=== PATIENT | female | born 1995 | race Caucasian/White ===

== ENCOUNTER → 2016-08-14 | Outpatient (CLI) | payer BC ==
[~2016-08-14] MED LIST: PRENTAB26 PO; SULF800T23 PO
[2016-08-14 10:10] LABS: BASO % 0.2 %; BASO ABS # 0.02 K/uL (0-0.2); COMPLETE YES; EOS % 0.4 %; HEMATOCRIT 36.5 % (37-47); IG% 0.3 %; LYMPH % 15.6 %; LYMPH ABS # 1.72 K/uL (1.2-3.4); MEAN CELL VOLUME 91.5 fL (80-100); MEAN CORPUSCULAR HEMOGLOBIN 31.8 pg (25-34); MEAN CORPUSCULAR HGB CONC 34.8 g/dl (32-36); MEAN PLATELET VOLUME 10.3 fL (7.4-10.4); MONO % 5.4 %; NEUT % 78.1 %; PLATELET COUNT 248 K/uL (130-400); RED BLOOD COUNT 3.99 M/uL (4.2-5.4); WHITE BLOOD COUNT 11.06 K/uL (4.8-10.8)
[2016-08-14 10:33] LABS: GTGD 50 Grams
[2016-08-15 13:28] LABS: AFP CONCENTRATION 35.8 NG/ML; AFP MULTIPLE OF MEDIAN 1.22; AFPTS GESTATIONAL AGE 15.7 WEEKS; AFPTS INSULIN DEP DIABETIC? NO; AFPTS MATERNAL WT 165 LBS; ALPHA-FETOPROTEIN RACE CAUCASIAN=W; EDD DETERMINED BY ULTRASOUND; ESTRIOL MULTIPLE OF MEDIAN 1.16; HISTORY OF NTD NO; INHIBIN A 367 PG/ML; INHIBIN A MOM 2.21; REPEAT SAMPLE? NO; hCG MULTIPLE OF MEDIAN 1.37
== END | disposition home or self-care (01) ==
LOC: C.LAB 08:14
PROVIDERS: ATTEND Obstetrics & Gynecology
DX: Z34.02 Encounter for supervision of normal first pregnancy, second trimester (principal)

== ENCOUNTER → 2016-11-20 | Outpatient (CLI) | payer BC ==
--- NOTE | 2016-11-20 16:46 | MAMMOGRAPHY REPORT ---
ULTRASOUND OF RIGHT BREAST: 11/20/2016 CLINICAL HISTORY: 21-year-old woman presents for follow-up of a benign-appearing solid or cystic mas s in the 10:00 right breast seen on previous ultrasound. Patient is currently 7 months . S he has a history of bilateral epidermal inclusion cysts versus boils throughout the breasts. COMPARISON: Comparison is made to exam dated: 05/21/2016 ultrasound - [facility]. FINDINGS: Targeted ultrasound was performed in the 10:00 axis of the right breast to reevaluate the lobulated hypoechoic possible solid mass seen on previous ultrasound. There is no evidence of mild lactational changes throughout the visualized right breast. In the 10:00 axis, 4 cm from the nippl e, there is a lobulated circumscribed parallel hypoechoic possible solid mass versus focal stromal f ibrosis, measuring 9.7 x 5.0 x 10.8 mm. Previous measurements were 13.5 x 8.1 x 7.5 mm. Given slig ht differences in measuring technique this is considered stable. However, longer stability is neede d and another short interval follow-up exam after delivery, approximately 4-6 months from now is rec ommended. IMPRESSION: ACR-BI-RADS CATEGORY 3: PROBABLY BENIGN - FOLLOW-UP RECOMMENDED The lobulated hypoechoic solid-appearing mass in the 10:00 right breast does not appear significantl y changed, appearing to the previous right breast ultrasound. Given technical differences between e xams, with new lactational changes evident in the right breast, the mass is somewhat less conspicuou s comparing to the prior ultrasound. Nevertheless, another targeted ultrasound in the right 10:00 b reast is recommended after delivery in 4-6 months to ensure longer stability. These results and recommendations were discussed with the patient at the time of the exam. Enedina Mckeon M.D. ay/:11/20/2016 15:15:19 Hydrometeorologist: Aruna SIDHU)(Kushal), [facility] letter sent: Follow Up Recommended 3 BI-RADS Code: ACR-BI-RADS Category 3: Probably Benign
== END | disposition home or self-care (01) ==
LOC: C.MAMM 13:29
PROVIDERS: ATTEND Internal Medicine
DX: N63 Unspecified lump in breast (principal); O26.893 Other specified pregnancy related conditions, third trimester

== ENCOUNTER 2017-02-05 01:58 | Inpatient (IN) | payer BC, OTHER ==
[~2017-02-05] VITALS: Ht 160 cm; Wt 88.5 kg
[~2017-02-05 01:58] MED LIST changes: -PRENTAB26 PO
[2017-02-05] MEDS ORDERED: NURSING VERBAL MED ORDER ONE ×2 (03:00)
[2017-02-05] MEDS ORDERED: BUTORPHANOL TARTRATE 1 MG/ML VIAL ONE (03:12)
[2017-02-05 03:15] LABS: HEMATOCRIT 36.9 % (37-47); MEAN CELL VOLUME 88.9 fL (80-100); MEAN CORPUSCULAR HEMOGLOBIN 29.9 pg (25-34); MEAN CORPUSCULAR HGB CONC 33.6 g/dl (32-36); MEAN PLATELET VOLUME 9.9 fL (7.4-10.4); PLATELET COUNT 282 K/uL (130-400); RED BLOOD COUNT 4.15 M/uL (4.2-5.4); WHITE BLOOD COUNT 13.21 K/uL (4.8-10.8)
[2017-02-05] MEDS ORDERED: BUTORPHANOL TARTRATE 1 MG/ML VIAL IV PRN (03:30)
[2017-02-05] MEDS ORDERED: LACTATED RINGER'S 1000ML 1,000 ML IV PRN (03:30)
[2017-02-05] MEDS: LACTATED RINGER'S 1000ML 1,000 ML IV SCH ×2 (03:32→09:42)
[2017-02-05] MEDS ORDERED: PRENTAB26 PO (03:35)
[2017-02-05 03:37] VITALS: Ht 160 cm; Wt 88.5 kg
[2017-02-05] MEDS ORDERED: EpHEDrine SULFATE INJ 50 MG/ML AMP ONE (05:48)
[2017-02-05] MEDS ORDERED: FENTANYL CITRATE INJ 50 MCG/1 ML 2 ML VIAL ONE (05:48)
[2017-02-05] MEDS ORDERED: FENTANYL 2MCG/ML ROPIV 1.25MG/ML 100ML BAG EPI ONE (05:48)
[2017-02-05] MEDS ORDERED: BUPIVACAINE 0.25% 30 ML VIAL ONE (05:48)
[2017-02-05] MEDS ORDERED: NALOXONE HCL INJ 1 MG in SODIUM CHLORIDE 0.9% 1000ML 1,000 ML IV PRN (06:59)
[2017-02-05] MEDS ORDERED: LACTATED RINGER'S 1000ML 500 ML IV PRN (06:59)
[2017-02-05] MEDS ORDERED: FENTANYL 2MCG/ML ROPIV 1.25MG/ML 100ML BAG EPI PRN (07:00)
[2017-02-05] MEDS ORDERED: NALBUPHINE HCL INJ 10 MG/ML AMP IV PRN (07:00)
[2017-02-05] MEDS ORDERED: DiphenhydrAMINE HCL 50 MG/ML VIAL IV PRN (07:00)
[2017-02-05] MEDS ORDERED: EpHEDrine SULFATE INJ 50 MG/ML AMP IV PRN (07:00)
[2017-02-05] MEDS ORDERED: NALOXONE HCL INJ 0.4 MG/1 ML VIAL/CARP IV PRN (07:00)
[2017-02-05] MEDS ORDERED: OXYTOCIN 30 UNITS/500ML NSS IV ONE (10:37)
[2017-02-05] MEDS ORDERED: ACETAMINOPHEN 325 MG TAB PO PRN (11:15)
[2017-02-05] MEDS ORDERED: BENZOCAINE 20% AER SPR 82.5 GM CAN EXT PRN (11:15)
[2017-02-05] MEDS ORDERED: OXYCODONE/ACETAMINOPHEN 5-325 TAB PO PRN (11:15)
[2017-02-05] MEDS ORDERED: SUPERCREAM 0.870 % 15GM JAR EXT PRN (11:15)
[2017-02-05] MEDS ORDERED: ACETAMINOPHEN/CODEINE 300/30MG TAB PO PRN ×2 (11:15)
[2017-02-05] MEDS ORDERED: HYDROCORTISONE ACETATE 25 MG SUPP PR PRN (11:15)
[2017-02-05] MEDS ORDERED: LANOLIN OINT EXT PRN ×2 (11:15)
[2017-02-05] MEDS ORDERED: OXYTOCIN 30 UNITS/500ML NSS IV PRN (11:15)
[2017-02-05] MEDS ORDERED: DIPHTHERIA/TETANUS/PERTUSSIS 0.5 ML SYR/VIAL IM. ONE (11:15)
--- NOTE | 2017-02-05 13:41 | Anesthesia Procedure Note ---
Anesthesia Epidural Removal Nt Date & Time Feb 05, 2017 at 13:40 Vital Signs Pain Intensity: 3.0 Notes Mental Status: alert / awake / arousable, participated in evaluation Nausea / Vomiting: adequately controlled Pain: adequately controlled Airway Patency, RR, SpO2: stable & adequate BP & HR: stable & adequate Hydration State: stable & adequate Neuraxial Anesthesia: was administered Anesthetic Complications: no major complications apparent, pt satisfied with anesthetic care Epidural: removed without complications, with tip intact
[2017-02-05 13:55] VITALS: BP 117/61; PULSE 80; TEMP 37.6
[2017-02-05 16:30] VITALS: BP 119/69; TEMP 36.8; O2SAT 98
[2017-02-05] MEDS: IBUPROFEN 600 MG TAB PO PRN ×2 (17:02→21:44)
[2017-02-05 20:05] VITALS: BP 109/66; PULSE 90; TEMP 36.5
[2017-02-05] MEDS: DOCUSATE SODIUM 100 MG CAP PO SCH (20:10)
[2017-02-05 23:10] VITALS: BP 96/63; PULSE 80; TEMP 36.6
[2017-02-06] MEDS: IBUPROFEN 600 MG TAB PO PRN ×4 (01:52→22:09)
[2017-02-06 03:10] VITALS: BP 102/61; PULSE 76; TEMP 36.4
[2017-02-06 07:40] LABS: HEMATOCRIT 32.5 % (37-47)
[2017-02-06 08:00] VITALS: BP 92/54; PULSE 80; TEMP 36.3
--- NOTE | 2017-02-06 09:01 | Progress Note ---
Subjective Feb 06, 2017. Subjective conversation w/ patient Ambulation: ambulating normally Voiding: no voiding problems Passing Gas: Yes Diet Tolerance: Regular Diet Lochia: Small Feeding Type: Breast Feeding Review of Systems Constitutional: + fever Objective Vital Signs Date Time Temp Pulse Resp B/P (MAP) Pulse Ox O2 Delivery O2 Flow Rate FiO2 02/06/17 08:00 36.3 80 18 92/54 (67) Room Air 02/06/17 03:10 36.4 76 16 102/61 (75) Room Air 02/05/17 23:10 36.6 80 18 96/63 (74) Room Air 02/05/17 23:10 Room Air 02/05/17 20:05 36.5 90 18 109/66 (80) Room Air 02/05/17 16:30 36.8 16 119/69 (86) 98 Room Air 02/05/17 16:30 98 Room Air 02/05/17 13:55 37.6 80 20 117/61 Physical Exam General Appearance: WELL-APPEARING Respiratory/Chest: lungs clear Fundus: Firm, Non-Tender Extremities: no pedal edema, no calf tenderness Laboratory Results Last 24 Hours Test 02/06/17 06:36 Hemoglobin 10.6 g/dL Hematocrit 32.5 % Assessment and Plan Post- Day#: 1
[2017-02-06] MEDS: DOCUSATE SODIUM 100 MG CAP PO SCH ×2 (09:41→19:57)
[2017-02-06] MEDS: FERROUS SULFATE 325 MG TAB PO SCH (09:41)
[2017-02-06] MEDS: PRENATAL VITAMIN TAB PO SCH (09:42)
--- NOTE | 2017-02-06 10:15 | Newborn Progress Note ---
Delivery Note Date of Service Feb 06, 2017. Attendance at Delivery Note Delivery Type: vaginal delivery Delivery Complications: other (meconium) Gestation: post-dates : complicated (smoker) Mother's Information Maternal Anesthesia: epidural Delivery Care Resuscitation: stimulation/drying, oxygen 1 minute: 8 5 minutes: 9 Transported to nursery: doing well
[2017-02-06 15:30] VITALS: BP 107/67; PULSE 80; TEMP 36.8; O2SAT 98
[2017-02-06] MEDS ORDERED: BISACODYL 5 MG TABEC PO SCH (20:00)
[2017-02-07 00:15] VITALS: BP 122/75; PULSE 75; TEMP 36.6; O2SAT 97
[2017-02-07] MEDS ORDERED: BISACODYL 10 MG SUPP PR PRN (07:00)
[2017-02-07 08:04] VITALS: BP 106/71; PULSE 87; TEMP 36.7; O2SAT 98
[2017-02-07] MEDS: FERROUS SULFATE 325 MG TAB PO SCH (08:17)
[2017-02-07] MEDS: DOCUSATE SODIUM 100 MG CAP PO SCH (08:17)
[2017-02-07] MEDS: IBUPROFEN 600 MG TAB PO PRN (08:17)
[2017-02-07] MEDS: PRENATAL VITAMIN TAB PO SCH (08:17)
--- NOTE | 2017-02-07 08:46 | Progress Note ---
Subjective Feb 07, 2017. Subjective conversation w/ patient Ambulation: ambulating normally Voiding: no voiding problems Passing Gas: Yes Diet Tolerance: Regular Diet Lochia: Small Feeding Type: Breast Feeding Review of Systems Constitutional: + fever Objective Vital Signs Date Time Temp Pulse Resp B/P (MAP) Pulse Ox O2 Delivery O2 Flow Rate FiO2 02/07/17 08:04 36.7 87 16 106/71 (83) 98 Room Air 02/07/17 00:15 36.6 75 18 122/75 (91) 97 Room Air 02/07/17 00:15 Room Air 02/06/17 15:30 36.8 80 18 107/67 (80) 98 Room Air 02/06/17 15:30 98 Room Air Physical Exam General Appearance: WELL-APPEARING Abdomen: non tender Fundus: Firm, Non-Tender Extremities: no pedal edema, no calf tenderness Assessment and Plan Post- Day#: 2
--- NOTE | 2017-02-07 08:47 | Discharge Instructions ---
Discharge Instructions Date of Service Feb 07, 2017. Admission Reason for Admission: Check Labor Discharge Discharge Diagnosis / Problem: meconium Discharge Goals Goal(s): Routine recovery after delivery Activity Recommendations Activity Limitations: as noted below ACTIVITY RECOMMENDATIONS: * Gradual return to full activity over the next 2-3 weeks. * No lifting - nothing heavier than baby over the next 2-3 weeks. * Do not engage in vigorous exercise, sexual activity or sports until cleared by your physician. * Do not drive or operate any motorized equipment until cleared by your physician. * You may shower/bathe daily. DIET: Resume Previous Diet If Breast-feeding: * Increase caloric intake by 500 calories, eat 3 well balanced meals, 2 high protein snacks a day and drink 6-8 8oz. glasses of fluid per day. BREAST CARE: If you are not breast feeding: * Wear a supportive bra 24 hours a day for one to two weeks. * Avoid stimulating your breasts and nipples as much as possible during the first few weeks after delivery. * When taking a shower, have the warm water hit your back, not breasts. * When your breasts feel full, apply ice packs. Usually three to four times a day helps ease the discomfort. * Take a mild pain medication (Tylenol / Motrin) when you are uncomfortable. If breast feeding: * Use breast milk to lubricate nipples. Lansinoh cream may be used for sore nipples. You do not need to remove cream prior to breast feeding. If using a different brand of cream, check the label for directions regarding removal of cream prior to nursing. * Wear a supportive bra. * If having problems with breasts or breast feeding, call a regional sales consultant or your health care provider. OVER THE COUNTER MEDICATION: * For discomfort or pain, you may use Acetaminophen (Tylenol), Ibuprofen (Advil ), or Naproxen (Aleve) following the package directions. * For constipation you may use Colace following the package directions. SPECIAL CARE INSTRUCTIONS: * Vaginal rest (no tampons, douching, intercourse) until after doctor 's visit. * control as discussed with doctor. * Verbalizes understanding of car seat law as reviewed with patient nursing. * Car Seat hand-out given and reviewed with patient by nursing. * Shaken baby information reviewed with patient by nursing. Call you doctor if: * Temperature greater than or equal to 100.4 degrees F or 38.0 degrees C. Take your temperature twice daily for a week. * Bleeding becomes heavier than the heaviest part of your period - saturating a sanitary pad within an hour. * Passing large clots. * Bleeding has a foul smelling odor. * Signs and symptoms of phlebitis: leg pain, warm, red or swollen area on leg. * "Baby Blues" lasting longer than two weeks. ++ If you have had a and incision has increased pain, redness, swelling, presence of any drainage, or if the incision starts to open up. If you have any questions or concerns, call your health care practitioner at [phone]. FOLLOW-UP VISIT: Please call the office at to schedule a 6 week examination. . Current Hospital Diet Patient's current hospital diet: Regular Diet Discharge Diet Recommended Diet: Regular Diet Pending Studies Studies pending at discharge: no Medical Emergencies . Who to Call and When: Medical Emergencies: If at any time you feel your situation is an emergency, please call 911 immediately. . Non-Emergent Contact Non-Emergency issues call your: Seismograph Operator Call Non-Emergent contact if: temperature is above 100.5 . . "Provider Documentation" section prepared by Gaston Sesay. . VTE Core Measure Inpt VTE Proph given/why not?: Treatment not indicated
[2017-02-07 11:50] VITALS: BP_DIAS 71; PULSE 87; TEMP 36.7
== END 2017-02-07 13:20 | disposition home or self-care (01) | DRG 775 ==
LOC: C.OPB 01:58 → C.LD 01:58 → C.OPB 02:30 → C.OBG 13:58
PROVIDERS: ADMIT Obstetrics & Gynecology; ATTEND Obstetrics & Gynecology
PROC: 10E0XZZ Delivery of Products of Conception, External Approach (ICD-10-PCS; principal; 2017-02-05)
DX: O48.0 Post-term pregnancy (principal); O77.0 Labor and delivery complicated by meconium in amniotic fluid; Z37.0 Single live birth; O99.334 Smoking (tobacco) complicating childbirth; Z3A.40 40 weeks gestation of pregnancy

== ENCOUNTER → 2017-07-15 | Outpatient (CLI) | payer BC, OTHER ==
[~2017-07-15] MED LIST changes: +PRENTAB26 PO; -SULF800T23 PO
[2017-07-15 17:44] LABS: URINE APPEARANCE TURBID (CLEAR); URINE BILIRUBIN NEG (NEG); URINE COLOR YELLOW; URINE EPITHELIAL CELL AUTO >30 /lpf (0-5); URINE NITRITE NEG (NEG); URINE SPECIFIC GRAVITY 1.026 (1.000-1.030); UROBILINOGEN NEG (NEG)
[2017-07-15 17:45] LABS: MANUAL MICROSCOPIC REQUIRED? NO; REVIEW REQ? YES
== END | disposition home or self-care (01) ==
LOC: C.LABBFT 12:22
PROVIDERS: ATTEND Physician Assistant Medical
DX: N89.8 Other specified noninflammatory disorders of vagina (principal)

== ENCOUNTER → 2017-10-03 | Outpatient (CLI) | payer OTHER ==
[~2017-10-03] MED LIST changes: +BCPILLS PO; +SULF400T7 PO
== END | disposition home or self-care (01) ==
LOC: C.LABBFT 14:11
PROVIDERS: ATTEND Physician Assistant Medical
DX: R39.9 Unspecified symptoms and signs involving the genitourinary system (principal)

== ENCOUNTER → 2017-10-07 | Outpatient (CLI) | payer OTHER | END | disposition home or self-care (01) | LOC: C.LABBFT 14:58 | PROVIDERS: ATTEND Physician Assistant Medical | DX: R10.31 Right lower quadrant pain (principal) ==

== ENCOUNTER → 2017-10-10 | Outpatient (CLI) | payer OTHER ==
--- NOTE | 2017-10-10 16:24 | DIAGNOSTIC IMAGING REPORT ---
KUB CLINICAL HISTORY: R39.9 Urinary symptom or [id number] HISTORY OF KIDNEY STONES COMPARISON STUDY: CT scan dated 01/13/2016 FINDINGS: A granular opacity projected over the left kidney likely represents overlying enteric contents. No definite renal calculi are visualized. There is a right pelvic basin calcification likely representing a phlebolith. There is no pathologic bowel dilatation. IMPRESSION: 1. No evidence of pathologic bowel dilatation 2. No definite urinary tract calculi identified Electronically signed by: Zion Quevedo M.D. 10/10/2017 4:23 PM Dictated Date/Time: 10/10/2017 4:22 PM
== END | disposition home or self-care (01) ==
LOC: C.RAD1850 16:14
PROVIDERS: ATTEND Physician Assistant Medical
DX: R39.9 Unspecified symptoms and signs involving the genitourinary system (principal)

== ENCOUNTER 2017-10-14 16:26 | Emergency (ER) | payer OTHER ==
[~2017-10-14] VITALS: Ht 160 cm; Wt 84.1 kg
[~2017-10-14 16:26] MED LIST changes: -BCPILLS PO; -SULF400T7 PO
[2017-10-14 16:32] VITALS: TEMP 36.9; Ht 160 cm; Wt 84.1 kg
[2017-10-14 17:39] VITALS: O2SAT 98
--- NOTE | 2017-10-14 17:42 | EMERGENCY ROOM VISIT NOTE ---
History First contact with patient: 17:14 Chief Complaint: SHORTNESS OF BREATH Stated Complaint: HARD TO BREATHE, CHEST PAIN Nursing Triage Summary: Patient c/o SOB with minimal activity and chest pain. States it feels like someone is pushing on her chest with their hand. Symptoms started yesterday. History of Present Illness The patient is a 22 year old female who presents to the Emergency Room with complaints of chest pain and difficulty getting a deep breath which began this morning upon awakening. The patient states she is currently feeling better here in the emergency department, however the symptoms seem to last all day. She states she felt like she ran and was having difficulty catching her breath, then noticed some pressure in her chest. She is currently breast-feeding and did pump, and states the symptoms continued to be present. She states she does have an 8-month-old healthy baby at home, and denies any recent illness of anybody in the family. She denies any unusual activities today. One week ago, she was at the . for right flank pain, but had an x-ray which was negative and states her symptoms improved. She has taken no medications for her symptoms. She states the pressure increased with standing, but did not note any improvement in symptoms. She rated the pain 4/10, but again, is currently in 0/10 pain. She denies any abdominal pain, fever, chills, nausea, vomiting, dysuria, urinary frequency or hesitancy, headache, dizziness, visual disturbances, numbness or tingling, recent travel, tachycardia, hormone use, or other associated symptoms. Review of Systems A complete 10 point review of systems was reviewed with the patient with pertinent positives and negatives as per history of present illness. All else were negative. Past Medical/Surgical History Medical Problems: (1) Leukocytosis (2) Leukocytosis (3) No Known Active Medical Problems (4) Non-cardiac chest pain Social History Smoking Status: Never Smoker Alcohol Use: none Drug Use: none Marital Status: single Housing Status: lives with family Occupation Status: student Current/Historical Medications Scheduled Control Pills ( Control Pills), 1 TAB PO DAILY Sulfamethoxazole-Trimethoprim (Bactrim 400MG/80MG), 1 TAB PO DAILY Physical Exam Vital Signs Date Time Temp Pulse Resp B/P (MAP) Pulse Ox O2 Delivery O2 Flow Rate FiO2 10/14/17 18:32 74 18 104/59 98 Room Air 10/14/17 17:39 98 Room Air 10/14/17 16:34 Room Air 10/14/17 16:32 36.9 80 16 123/68 98 Room Air Physical Exam VITALS: Vitals are noted on the nurse's note and reviewed by myself. Vital signs stable. GENERAL: This is a 22-year-old white female, in no acute distress, nondiaphoretic, well-developed well-nourished. SKIN: The skin was without rashes, erythema, edema, or bruising. There is no tenting of the skin. Capillary reflex less than 2 seconds. HEAD: Normocephalic atraumatic. EARS: External auditory canals clear, tympanic membranes pearly irizarry without erythema or effusion bilaterally. EYES: Pupils equal round and reactive to light and accommodation. Conjunctivae without injection, sclerae without icterus. Extraocular movements intact. NOSE: Patent, turbinates without inflammation or discharge. No sinus tenderness. MOUTH: Mucous membranes moist. Tonsils are not enlarged. Pharynx without erythema or exudate. Uvula midline. Airway patent. Tongue does not deviate. NECK: Supple without nuchal rigidity. No lymphadenopathy. No thyromegaly. Cervical spine is nontender. No JVD. HEART: Regular rate and rhythm without murmurs gallops or rubs. No lower extremity edema noted. LUNGS: Clear to auscultation bilaterally without wheezes, rales or rhonchi. No dullness to percussion. No retractions or accessory muscle use. ABDOMEN: Positive bowel sounds x 4. Normal tympanic percussion. Soft, nontender, without masses or organomegaly. Banda sign negative. No guarding or rebound tenderness. MUSCULOSKELETAL: No muscle atrophy, erythema, or edema noted. Full range of motion without joint tenderness in all extremities. No tenderness to palpation , specifically of the chest wall. Normal gait. Strength 5/5 throughout. NEURO: Patient was alert and oriented to person place and time. Normal sensation to light and sharp touch. Deep tendon reflexes 2+ throughout. No focal neurological deficits. Medical Decision & Procedures ER Provider Diagnostic Interpretation: TWO VIEW CHEST CLINICAL HISTORY: Atypical chest pain. FINDINGS: PA and lateral chest radiographs are compared to study dated 02/09/2014. The cardiomediastinal silhouette is unremarkable. The lungs and pleural spaces are clear. There is no pneumothorax. The bony thorax appears intact. IMPRESSION: No active disease in the chest. Electronically signed by: Demetrius Dickson M.D. 10/14/2017 6:12 PM Dictated Date/Time: 10/14/2017 6:12 PM Laboratory Results 10/14/17 17:40 Red Blood Count 4.74, Mean Corpuscular Volume 86.5, Mean Corpuscular Hemoglobin 30.0, Mean Corpuscular Hemoglobin Concent 34.6, Mean Platelet Volume 9.9, Neutrophils (%) (Auto) 57.2, Lymphocytes (%) (Auto) 34.0, Monocytes (%) (Auto) 7.2, Eosinophils (%) (Auto) 1.0, Basophils (%) (Auto) 0.3, Neutrophils # (Auto) 3.87, Lymphocytes # (Auto) 2.30, Monocytes # (Auto) 0.49, Eosinophils # (Auto) 0.07, Basophils # (Auto) 0.02 10/14/17 17:40 Test 10/14/17 16:37 10/14/17 17:40 Urine Color YELLOW Urine Appearance CLEAR (CLEAR) Urine pH 6.5 (4.5-7.5) Urine Specific Eldridge 1.010 (1.000-1.030) Urine Protein NEG (NEG) Urine Glucose (UA) NEG (NEG) Urine Ketones NEG (NEG) Urine Occult Blood TRACE (NEG) Urine Nitrite NEG (NEG) Urine Bilirubin NEG (NEG) Urine Urobilinogen NEG (NEG) Urine Leukocyte Esterase NEG (NEG) Urine WBC (Auto) 1-5 /hpf (0-5) Urine RBC (Auto) 0-4 /hpf (0-4) Urine Hyaline Casts (Auto) 1-5 /lpf (0-5) Urine Epithelial Cells (Auto) 10-20 /lpf (0-5) Urine Bacteria (Auto) NEG (NEG) Urine Test NEG (NEG) White Blood Count 6.77 K/uL (4.8-10.8) Red Blood Count 4.74 M/uL (4.2-5.4) Hemoglobin 14.2 g/dL (12.0-16.0) Hematocrit 41.0 % (37-47) Mean Corpuscular Volume 86.5 fL (80-100) Mean Corpuscular Hemoglobin 30.0 pg (25-34) Mean Corpuscular Hemoglobin Concent 34.6 g/dl (32-36) Platelet Count 282 K/uL (130-400) Mean Platelet Volume 9.9 fL (7.4-10.4) Neutrophils (%) (Auto) 57.2 % Lymphocytes (%) (Auto) 34.0 % Monocytes (%) (Auto) 7.2 % Eosinophils (%) (Auto) 1.0 % Basophils (%) (Auto) 0.3 % Neutrophils # (Auto) 3.87 K/uL (1.4-6.5) Lymphocytes # (Auto) 2.30 K/uL (1.2-3.4) Monocytes # (Auto) 0.49 K/uL (0.11-0.59) Eosinophils # (Auto) 0.07 K/uL (0-0.5) Basophils # (Auto) 0.02 K/uL (0-0.2) RDW Standard Deviation 42.6 fL (36.4-46.3) RDW Coefficient of Variation 13.4 % (11.5-14.5) Immature Granulocyte % (Auto) 0.3 % Immature Granulocyte # (Auto) 0.02 K/uL (0.00-0.02) Anion Gap 8.0 mmol/L (3-11) Est Creatinine Clear Calc Drug Dose 101.3 ml/min Estimated GFR () 106.6 Estimated GFR (Non- 92.0 BUN/Creatinine Ratio 11.4 (10-20) Calcium Level 8.9 mg/dl (8.5-10.1) Total Bilirubin 0.5 mg/dl (0.2-1) Aspartate Amino Transf (AST/SGOT) 16 U/L (15-37) Alanine Aminotransferase (ALT/SGPT) 27 U/L (12-78) Alkaline Phosphatase 117 U/L (45-117) Troponin I < 0.015 ng/ml (0-0.045) Total Protein 7.6 gm/dl (6.4-8.2) Albumin 4.0 gm/dl (3.4-5.0) Globulin 3.6 gm/dl (2.5-4.0) Albumin/Globulin Ratio 1.1 (0.9-2) Thyroid Stimulating Hormone (TSH) 1.220 uIu/ml (0.300-4.500) ECG Per My Interpretation Indication: chest pain Rate (beats per minute): 70 Rhythm: normal sinus Findings: no acute ischemic change Comparison ECG Date: no prior available ED Course The patient was seen and evaluated as above. IV access obtained, labs drawn Chest x-ray performed. This was reviewed by myself and radiologist. I discussed the findings with the patient at bedside. She was reassessed and continues to feel asymptomatic. Discharge instructions reviewed, the patient was discharged home in good condition. Medical Decision This is a 22-year-old female patient presents to the emergency department today complaining of chest pain associated with difficulty getting a deep breath. The patient states the symptoms lasted for several hours, and the only thing which worsened the symptoms was standing upright. Upon arrival to the emergency department, her symptoms have completely resolved. The patient scores 0 on the PERC rule and I have a low suspicion for PE. Her workup here in the emergency department was overall negative. No leukocytosis, anemia, thrombocytopenia. Urinalysis negative for signs of infection. CMP negative for acute renal, hepatic, electrolyte abnormalities. Patient's TSH was normal. Chest x-ray was without acute etiology for the patient's pain. I discussed the findings with the patient and her at bedside. All questions were answered to her satisfaction. She is encouraged to follow-up outpatient with the primary care provider and a discussed with her proper outpatient pain management. Etiologies such as cardiac ischemia, aortic dissection, pulmonary embolism, pneumonia, pneumothorax, musculoskeletal, infections, gastrointestinal, as well as others were entertained. Medication Reconcilliation Current Medication List: was personally reviewed by me Blood Pressure Screening Patient's blood pressure: Normal blood pressure Impression Primary Impression: Non-cardiac chest pain Departure Information Dispostion Home / Self-Care Condition GOOD Referrals Prasanth Rowe M.D. (PCP) Patient Instructions ED Chest Pain NonCardiac, My [facility] Additional Instructions You were seen in the emergency department today for chest pain and difficulty breathing. Your symptoms did resolve while here. Labs and imaging workup were negative for acute cardiac cause. Ibuprofen(Motrin, Advil) may be used for fever or pain. Use 600mg every six hours as needed. Take with food. Avoid using more than 2400mg in a 24 hour period. Do not use 2400mg per day for more than three consecutive days without physician direction. Prolonged inappropriate use can lead to stomach upset or ulcers. (AND/OR) Acetaminophen(Tylenol) may be used for fever or pain. Use 1000mg every six hours as needed. Avoid using more than 3000mg in a 24 hour period. Follow-up with her primary care provider in 2-3 days for reevaluation. Return to the emergency department for worsening pain, difficulty breathing, coughing up blood, fevers, or other concerning symptoms.
[2017-10-14] MEDS ORDERED: BCPILLS PO (17:48)
[2017-10-14] MEDS ORDERED: SULF400T7 PO (17:49)
[2017-10-14 17:52] LABS: BASO % 0.3 %; BASO ABS # 0.02 K/uL (0-0.2); EOS ABS # 0.07 K/uL (0-0.5); HEMOGLOBIN 14.2 g/dL (12.0-16.0); IG# 0.02 K/uL (0.00-0.02); MEAN CELL VOLUME 86.5 fL (80-100); MEAN CORPUSCULAR HGB CONC 34.6 g/dl (32-36); MEAN PLATELET VOLUME 9.9 fL (7.4-10.4); MONO % 7.2 %; MONO ABS # 0.49 K/uL (0.11-0.59); NEUT % 57.2 %; NEUT ABS # 3.87 K/uL (1.4-6.5); PLATELET COUNT 282 K/uL (130-400); RED CELL DISTRIBUTION WIDTH CV 13.4 % (11.5-14.5); RED CELL DISTRIBUTION WIDTH SD 42.6 fL (36.4-46.3); WHITE BLOOD COUNT 6.77 K/uL (4.8-10.8)
[2017-10-14 18:09] LABS: ALT/SGPT 27 U/L (12-78); AST/SGOT 16 U/L (15-37); BLOOD UREA NITROGEN 10 mg/dl (7-18); CALCIUM 8.9 mg/dl (8.5-10.1); CARBON DIOXIDE 24 mmol/L (21-32); CREATININE 0.88 mg/dl (0.60-1.20); GLUCOSE 87 mg/dl (70-99); POTASSIUM 3.8 mmol/L (3.5-5.1); SODIUM 138 mmol/L (136-145)
--- NOTE | 2017-10-14 18:14 | DIAGNOSTIC IMAGING REPORT ---
TWO VIEW CHEST CLINICAL HISTORY: Atypical chest pain. FINDINGS: PA and lateral chest radiographs are compared to study dated 02/09/2014. The cardiomediastinal silhouette is unremarkable. The lungs and pleural spaces are clear. There is no pneumothorax. The bony thorax appears intact. IMPRESSION: No active disease in the chest. Electronically signed by: Demetrius Dickson M.D. 10/14/2017 6:12 PM Dictated Date/Time: 10/14/2017 6:12 PM
[2017-10-14 18:24] LABS: ALKALINE PHOSPHATASE 117 U/L (45-117); TOTAL PROTEIN 7.6 gm/dl (6.4-8.2)
[2017-10-14 18:32] VITALS: BP 104/59; PULSE 74; O2SAT 98
== END 2017-10-14 19:02 | disposition home or self-care (01) ==
LOC: C.EDB 16:27
DX: R07.89 Other chest pain (principal)

== ENCOUNTER → 2017-11-08 | Outpatient (CLI) | payer OTHER ==
[~2017-11-08] MED LIST changes: +BCPILLS PO; -PRENTAB26 PO; +SULF400T7 PO
== END | disposition home or self-care (01) ==
LOC: C.LABBFT 09:07
PROVIDERS: ATTEND Internal Medicine
DX: L72.3 Sebaceous cyst (principal)

== ENCOUNTER 2020-05-01 01:27 | Inpatient (IN) ==
[2020-05-01] MEDS ORDERED: OXYTOCIN 30 UNITS/500 ML BAG IV PRN ×3 (01:36→06:09)
[2020-05-01] MEDS ORDERED: LACTATED RINGER'S 1,000 ML IV PRN (01:36)
[2020-05-01 02:15] LABS: Hematocrit (blood only) 36.5 % (37-47); Hemoglobin 11.3 g/dL (12.0-16.0); Mean Corpuscular Hemoglobin 27.6 pg (25-34); Mean Platelet Volume 11.2 fL (7.4-10.4); Platelet Count 241 K/uL (130-400); RDW Coefficient of Variation 15.6 % (11.5-14.5); White Blood Count 7.82 K/uL (4.8-10.8)
[2020-05-01] MEDS ORDERED: DiphenhydrAMINE HCL 50 MG/ML VIAL IV PRN (02:43)
[2020-05-01] MEDS ORDERED: ONDANSETRON INJ 2 MG/ML 2 ML VIAL IV PRN (02:43)
[2020-05-01] MEDS ORDERED: fentaNYL 2MCG/ML ROPIV 1.25MG/ML 100 ML BAG EPI PRN (02:43)
[2020-05-01] MEDS ORDERED: NALOXONE HCL 0.4 MG/1 ML VIAL/CARP IV PRN (02:43)
[2020-05-01] MEDS ORDERED: ePHEDrine sulfate 50 MG/ML AMP IV PRN (02:43)
[2020-05-01] MEDS ORDERED: NALOXONE HCL 1 MG in SODIUM CHLORIDE 0.9% 1000ML 1,000 ML IV PRN (02:43)
--- NOTE | 2020-05-01 02:46 | Anesthesiology Consultation ---
Date of Service May 01, 2020 Covid 19 negative today. Assessment & Plan Chart Review Chart Review: Patient NOT seen in Pre Admission Testing and Acceptable Risk for Labor Epidural Consults Requested none ASA ASA2 Proposed Anesthesia Anesthesia Type: Labor Epidural and CSE Risk / Benefits Reviewed With: PT / POA / Parent / Guardian, Accepts Plan and Informed Consent Obtained History Height/Weight Height: 5 ft 3 in Weight: 99.337 kg Allergies Allergy/AdvReac Type Severity Reaction Status Date / Time Penicillins Allergy Unknown UNKNOWN Verified 05/01/20 01:42 Medications Home Medications Medication Instructions Recorded Confirmed Last Taken sertraline 25 mg tablet 25 mg PO DAILY #30 tab 09/02/19 05/01/20 04/30/20 08:00 Active Medications Generic Name Dose Route Start Last Admin Trade Name Freq PRN Reason Stop Dose Admin Lactated Ringer's 1,000 mls @ 125 mls/hr 05/01/20 01:36 05/01/20 02:30 Lr IV 05/03/20 01:35 125 mls/hr .Q8H PRN Infusion L&D Protocol Protocol NPO Date Last Intake of Fluids: 05/01/20 Time Last Intake of Fluids: 01:00 Date Last Intake of Solids: 04/30/20 Time Last Intake of Solids: 21:00 Past Medical History Medical History Anxiety Heartburn INFREQUENT/DIETARY INTAKE Hidradenitis suppurativa Exercise / Class Metabolic Activity II 4-5 Yardwork/Stairs/Walk up hill Past Family History Family History Other Family history of diabetes mellitus Past Surgical History Surgical History History of surgical procedure on mouth root canal Status post bilateral breast reduction 10-18 Past Anesthesia History No Hx of Anesthesia Complications and No Family Hx of Anesthesia Complications History of PONV No Hx of PONV and No Hx of Motion Sickness Social History Smoking Status: Former smoker Smoking cigarettes per day: VAPE, NO NICOTINE CURRENTLY Smoking End Date: 3 years ago Hx Alcohol Use: No Hx Substance Use: No substance use type: does not use Review of Systems no chest pain or sob Physical Exam Vital Signs Last Vital Signs Temp 36.4 C L 05/01/20 01:53 Pulse 75 05/01/20 01:53 Resp 20 05/01/20 01:53 BP 131/82 05/01/20 01:53 ENMT Mouth: no TMJ abnormality Thyromental Distance: > or= 3.5 Finger Breadths Mallampati Class: II Neck normal visual inspection Respiratory normal respiratory effort Auscultation: lungs clear to auscultation bilaterally Cardiovascular Rate/Rhythm: regular rate and regular rhythm Musculoskeletal Spine: normal cervical ROM Neurologic moves all extremities Psychiatric Orientation: alert and oriented x 3 Testing Laboratory Results 05/01/20 01:53
[2020-05-01] MEDS ORDERED: fentaNYL citrate 100 MCG/2 ML VIAL ONE (03:28)
[2020-05-01] MEDS ORDERED: ePHEDrine sulfate 50 MG/ML AMP ONE (03:28)
[2020-05-01] MEDS ORDERED: BUPIVACAINE 0.25% 30 ML VIAL ONE (03:28)
[2020-05-01] MEDS ORDERED: fentaNYL 2MCG/ML ROPIV 1.25MG/ML 100 ML BAG EPI ONE (03:29)
[2020-05-01] MEDS ORDERED: HYDROCORTISONE ACETATE 25 MG SUPP PR PRN (06:09)
[2020-05-01] MEDS ORDERED: ACETAMINOPHEN 325 MG TAB PO PRN (06:09)
[2020-05-01] MEDS ORDERED: OXYCODONE/ACETAMINOPHEN 5mg/325mg TAB PO PRN (06:09)
[2020-05-01] MEDS ORDERED: DIPHTHERIA/TETANUS/PERTUSSIS 0.5 ML SYR/VIAL IM ONE (06:09)
[2020-05-01] MEDS ORDERED: SUPERCREAM 0.870% 15 GM JAR EXT PRN (06:09)
[2020-05-01] MEDS ORDERED: ACETAMINOPHEN W/CODEINE #3 1 TAB PO PRN (06:09)
[2020-05-01] MEDS ORDERED: bisacodyL 10 MG SUPP PR PRN (06:09)
[2020-05-01] MEDS ORDERED: BENZOCAINE 20% AER SPR 82.5 GM CAN EXT PRN (06:09)
--- NOTE | 2020-05-01 07:47 | Delivery Summary ---
DATE OF OPERATION: 05/01/2020 DELIVERY NOTE The patient is 2, para 2, blood type is A positive, group B strep negative. Due date is 05/10/2020, was admitted earlier the previous day with sporadic contractions about 4 cm dilated. Send her home. She later came back the following day in the early hours of the morning, she was now 7 cm. We gave her fluids, she received epidural, she got good pain relief. An hour after the epidural I was in, I checked her, membranes were bulging. She was 8-9 cm. Ruptured the membranes. There was some meconium fluid noted. Then we started her on Pitocin. Just gave her small amount of Pitocin. Head came right down. She delivered a live male via direct occiput anterior position over an intact perineum. was suctioned through the mouth and the nose before delivery of the shoulders. Shoulders were delivered without difficulty. After the delivery of the infant, we let the cord pulse for 1 minute, then the cord was cut by the father. Cord blood was taken. With IV Pitocin running, the placenta was removed intact. Then inspection of the perineum revealed no lacerations, no bleeding and the uterus contracted nicely with IV Pitocin running. Estimated blood loss was 200 mL I attest to the content of the Intraoperative Record and any orders documented therein. Any exception s are noted below.
--- NOTE | 2020-05-01 07:57 | Anesthesiology Progress Note ---
Date of Service May 01, 2020 Anesthesia Post Procedure Vital Signs Vital Signs: Temp Pulse Resp BP Pulse Ox 05/01/20 07:52 92 H 123/76 05/01/20 07:37 62 127/72 05/01/20 07:22 70 125/67 05/01/20 07:07 67 132/75 05/01/20 06:52 67 113/58 L 05/01/20 06:37 75 16 118/56 L 05/01/20 06:22 88 16 131/68 05/01/20 06:06 90 18 138/72 05/01/20 06:01 103 H 99 05/01/20 06:00 18 05/01/20 05:59 98 H 127/62 05/01/20 05:56 92 H 100 05/01/20 05:51 103 H 100 05/01/20 05:46 70 100 05/01/20 05:44 144 H 139/73 05/01/20 05:41 67 100 05/01/20 05:36 94 H 99 05/01/20 05:31 71 141/91 H 100 05/01/20 05:30 18 05/01/20 05:26 72 98 05/01/20 05:21 71 100 05/01/20 05:16 64 100 05/01/20 05:15 36.7 C 05/01/20 05:14 71 136/72 05/01/20 05:11 68 100 05/01/20 05:06 63 100 05/01/20 05:01 63 100 05/01/20 05:00 16 05/01/20 04:59 67 123/63 05/01/20 04:56 66 99 05/01/20 04:51 75 98 05/01/20 04:46 60 100 05/01/20 04:45 56 L 123/65 05/01/20 04:41 58 L 100 05/01/20 04:36 67 100 05/01/20 04:31 66 100 05/01/20 04:29 65 116/65 05/01/20 04:26 60 100 05/01/20 04:21 70 100 05/01/20 04:16 65 100 05/01/20 04:14 81 136/87 05/01/20 04:11 73 99 05/01/20 04:06 68 99 05/01/20 04:01 60 100 09/20/20 04:00 80 168/98 H 05/01/20 03:56 60 99 05/01/20 03:51 61 100 05/01/20 03:46 67 99 05/01/20 03:43 76 123/68 05/01/20 03:41 65 121/65 100 05/01/20 03:38 72 86 L 05/01/20 03:36 64 98 05/01/20 03:34 64 94/53 L 05/01/20 03:31 65 100 05/01/20 03:30 18 05/01/20 03:29 60 115/53 L 05/01/20 03:26 64 99 05/01/20 03:24 64 102/54 L 05/01/20 03:21 66 97 05/01/20 03:18 65 122/58 L 05/01/20 03:16 73 100 05/01/20 03:15 36.5 C 18 05/01/20 03:13 74 126/61 05/01/20 03:11 76 120/58 L 100 05/01/20 03:08 77 122/57 L 05/01/20 03:07 79 114/58 L 05/01/20 03:06 84 100 05/01/20 03:04 81 118/58 L 05/01/20 03:01 74 99 05/01/20 02:56 98 H 100 05/01/20 02:51 105 H 96 05/01/20 02:46 81 100 05/01/20 01:53 36.4 C L 75 20 131/82 05/01/20 01:42 36.4 C L 75 20 131/82 Transfer of Care Handoff Completed per policy Notes Mental Status: alert / awake / arousable and participated in evaluation Patient Amnestic to Procedure: Yes Nausea / Vomiting: adequately controlled Pain: adequately controlled Airway Patency, RR, SpO2: stable & adequate BP & HR: stable & adequate Hydration State: stable & adequate Anesthetic Complications: no major complications apparent and Pt Satisfied with anesthetic care
[2020-05-01] MEDS: DOCUSATE SODIUM 100 MG CAP PO SCH ×2 (08:09→20:12)
[2020-05-01] MEDS: PRENATAL VITAMIN 1 TAB PO SCH (08:09)
[2020-05-01] MEDS: IBUPROFEN 600 MG TAB PO PRN ×3 (08:15→20:12)
[2020-05-01] MEDS: SERTRALINE HCL 50 MG TABLET PO SCH (10:05)
[2020-05-01] MEDS ORDERED: CALCIUM CARBONATE 500 MG CHEWABLE TAB PO PRN (15:50)
[2020-05-02] MEDS: IBUPROFEN 600 MG TAB PO PRN ×2 (00:20→09:10)
[2020-05-02 06:09] LABS: Hematocrit (blood only) 32.2 % (37-47); Mean Corpuscular Hemoglobin 27.9 pg (25-34); Mean Corpuscular Hgb Conc 31.1 g/dL (32-36); Mean Corpuscular Volume 89.9 fL (80-100); Mean Platelet Volume 10.7 fL (7.4-10.4); Platelet Count 211 K/uL (130-400); RDW Coefficient of Variation 15.8 % (11.5-14.5); RDW Standard Deviation 51.1 fL (36.4-46.3); Red Blood Count 3.58 M/uL (4.2-5.4); White Blood Count 7.16 K/uL (4.8-10.8)
[2020-05-02] MEDS: DOCUSATE SODIUM 100 MG CAP PO SCH (08:46)
[2020-05-02] MEDS: PRENATAL VITAMIN 1 TAB PO SCH (08:46)
[2020-05-02] MEDS: SERTRALINE HCL 50 MG TABLET PO SCH (09:11)
--- NOTE | 2020-05-02 09:22 | Obstetrical Progress Note ---
Date of Service May 02, 2020 Assessment & Plan Admission and Anticipated Discharge Date Admission Date: May 01, 2020 Physical Exam Physical Exam: abdomen soft and non tender ambulating well no calf tenderness vaginal bleeding scant hgb 10.0 Results & Data ([facility]) Vital Signs (Past 12 Hours) Vital Signs Temp Pulse Resp BP 05/02/20 04:40 36.7 C 62 18 131/71 05/02/20 00:25 36.6 C 67 18 116/71
[2020-05-02] MEDS ORDERED: bisacodyL 5 MG TABEC PO SCH (20:00)
== END 2020-05-02 16:00 | disposition home or self-care (01) | DRG 807 ==
LOC: OPB 01:27 → 4S1 01:29 → 4S2 09:22
DX: Z3A.38 38 weeks gestation of pregnancy; Z87.891 Personal history of nicotine dependence; Z88.0 Allergy status to penicillin; F41.9 Anxiety disorder, unspecified; O77.0 Labor and delivery complicated by meconium in amniotic fluid; Z79.899 Other long term (current) drug therapy; O99.344 Other mental disorders complicating childbirth; Z37.0 Single live birth

== ENCOUNTER 2022-01-02 14:57 | Inpatient (IN) ==
[2022-01-02 15:43] LABS: Basophils # (auto) 0.02 K/uL (0-0.2); Basophils % (auto) 0.1 %; Eosinophils # (auto) 0.02 K/uL (0-0.5); Eosinophils % (auto) 0.1 %; Hematocrit (blood only) 41.7 % (37-47); Hemoglobin 13.8 g/dL (12.0-16.0); Immature Granulocytes # (auto) 0.04 K/uL (0.00-0.02); Immature Granulocytes % (auto) 0.3 %; Lymphocytes # (auto) 1.98 K/uL (1.2-3.4); Lymphocytes % (auto) 12.9 %; Mean Corpuscular Hemoglobin 28.7 pg (25-34); Mean Corpuscular Hgb Conc 33.1 g/dL (32-36); Mean Corpuscular Volume 86.7 fL (80-100); Mean Platelet Volume 10.5 fL (7.4-10.4); Monocytes # (auto) 0.73 K/uL (0.11-0.59); Monocytes % (auto) 4.8 %; Neutrophils # (auto) 12.56 K/uL (1.4-6.5); Neutrophils % (auto) 81.8 %; Platelet Count 367 K/uL (130-400); RDW Coefficient of Variation 17.2 % (11.5-14.5); RDW Standard Deviation 54.3 fL (36.4-46.3); Red Blood Count 4.81 M/uL (4.2-5.4); White Blood Count 15.35 K/uL (4.8-10.8)
[2022-01-02 16:09] LABS: Appearance Urine Cloudy (Clear); Bacteria Urine Automated 1+ (Negative); Bilirubin Urine Negative (Negative); Blood Urine Trace (Negative); Color Urine Dark Yellow; Epithelial Cell Urine Auto >30 /lpf (0-5); Glucose Urine UA Negative (Negative); Ketones Urine Trace (Negative); Leukocyte Esterase Urine 2+ (Negative); Nitrite Urine Negative (Negative); Protein Urine Negative (Negative); Specific Gravity Urine 1.023 (1.000-1.030); Urobilinogen Urine Negative (Negative); pH Urine 5.5 (4.5-7.5)
[2022-01-02 16:10] LABS: Albumin Globulin Ratio 1.7 (0.9-2); Albumin Level 4.8 gm/dl (3.4-5.0); Bilirubin,Total 0.6 mg/dl (0.2-1.0); Calcium 9.7 mg/dl (8.5-10.1); Est GFR (African American) 129.9 ml/min; Est GFR (Non-African American) 112.1 ml/min; Globulin 2.8 gm/dl (2.5-4.0); Potassium 4.2 mmol/L (3.5-5.1); Total Protein 7.6 gm/dl (6.0-8.3)
[2022-01-02 16:37] LABS: Mucus Urine Present (None Prsent)
[2022-01-02 16:38] LABS: Calcium Oxalate Crystals Urine Present (None Prsent)
[2022-01-02] MEDS ORDERED: DOXYCYCLINE HYCLATE 100 MG in DEXTROSE 5% 100 ML IV STA (16:44)
[2022-01-02] MEDS ORDERED: SODIUM CHLORIDE 0.9% 1000ML 2,000 ML IV ONE (16:44)
[2022-01-02] MEDS ORDERED: cefTRIAXone SODIUM 2,000 MG/70 ML BAG IV STA (16:44)
--- NOTE | 2022-01-02 16:49 | Emergency Department Note ---
Impression & Plan Acute pelvic inflammatory disease (PID), Abdominal pain, Leukocytosis ED Provider Note NAME: ANTWAN RAZA AGE: 26 SEX: F : 1995 ARRIVES VIA: Walk-In INFORMANT: Patient ED PROVIDER(S): Alex Rivera DO CHIEF COMPLAINT: abdominal pain HPI: Patient is a 26-year-old female who presents to the ER for recurrent STDs as she was treated several months ago for chlamydia. Symptoms started again over a week ago. She believes she took azithromycin and completed the course. She had severe worsening pain which is a 10 out of 10 in the lower pelvis. She describes as sharp and stabbing. Its worse with sitting or movement. She admits to worsening drainage again. Denies any headache or change in vision. No chest pain or shortness of breath. Admits to nausea but no vomiting. Denies any dysuria, urgency, or frequency. No other exacerbating or remitting factors. ROS: See above HPI for pertinent positives & negatives. A total of 10 systems reviewed and were otherwise negative. PAST MEDICAL HISTORY:See Below PAST SURGICAL HISTORY:See Below FAMILY HISTORY:See Below SOCIAL HISTORY:See Below HOME MEDICATIONS:See Below ALLERGIES:See Below VITALS:See Below PHYSICAL EXAMINATION: GENERAL: Sitting up in bed, alert, anxious, mild distress EYE EXAM: normal conjunctiva. PERRL and EOM's grossly intact. OROPHARYNX: no exudate, no erythema, lips, buccal mucosa, and tongue normal and mucous membranes are moist NECK: supple, no nuchal rigidity, no adenopathy, non-tender LUNGS: Clear to auscultation. Normal chest wall mechanics HEART: no murmurs, S1 normal and S2 normal ABDOMEN: abdomen soft, TTP in lower abd, normo-active bowel sounds, no masses, no rebound or guarding. UPPER EXTREMITIES: upper extremities are grossly normal. LOWER EXTREMITIES: No pitting edema. NEURO EXAM: Normal sensorium, cranial nerves II-XII grossly intact, normal speech, no gross weakness of arms, no gross weakness of legs. MEDICAL DECISION MAKING: Patient is a 26-year-old female who presents the ER for lower abdominal pain. IV was established blood work was obtained. Labs show leukocytosis of 15,000. No significant anemia. BMP along with LFTs bilirubin and lipase was unremarkable. Lactic acid was normal. UA was contaminated. negative. CT abdomen pelvis showed ascites with a fluid collection right lower quadrant which was not quite an abscess at this time per Dr. Donahue. Patient was updated bedside. She is given IV fluids morphine as well as Flagyl Rocephin and doxycycline. Patient was updated bedside. Discussed with Dr. Sesay and patient was admitted for further work-up of failure of outpatient treatment for chlamydia now with worsening PID and abdominal ascites. Preg neg. Triage Nursing notes reviewed. Limited review of prior medical records performed Vital Signs: reviewed and remarkable for tachy Differential diagnosis: Differential diagnoses includes but is not limited to gastritis, peptic ulcer disease, GERD, gallbladder disease, pancreatitis, small bowel obstruction, acute coronary syndrome, pericarditis, ischemic bowel, irritable bowel disease, irritable bowel syndrome, appendicitis, diverticulitis, malignancy, hernia, urinary tract infection, torsion, /ectopic (if female), perforation, trauma, infectious. ER treatment provided: See below Diagnostics interpreted by me: ECG: none Cardiac Monitoring: An order was placed for continuous cardiac monitoring. The monitor shows a rate of 90 with sinus rhythm. Laboratory studies: As stated above and show below. Imaging studies: CT abdomen pelvis as described above Consultation(s): Discussed with Dr. Sesay from PHYSICAL THERAPY COORDINATOR Procedures: none Critical Care: None Past Med/Surg History Medical History (Updated 01/02/22 @ 22:01 by Alex Rivera DO) Anxiety Heartburn INFREQUENT/DIETARY INTAKE Hidradenitis suppurativa Surgical History History of surgical procedure on mouth root canal Status post bilateral breast reduction 10-18 Family History Other Family history of diabetes mellitus Social History Smoking Status: Never smoker Cigarettes Per Day: VAPE, NO NICOTINE CURRENTLY; Second Hand Exposure: No; Hx Alcohol Use: No Hx Substance Use: No Preferred Language: Faroese Communication Ability: Effective Visual Impairment: Limited Hearing Ability: Normal Field Specialist Required: No Beliefs That Will Affect Care: None marital status: Current Living Situation: Spouse and Family Current Living Situation Comment: 3 year old daughter and Feels Safe at Home: Yes Assistive Devices: None Allergies Allergies Allergy/AdvReac Type Severity Reaction Status Date / Time Penicillins Allergy Unknown HAPPENED Verified 01/02/22 17:38 AN INFANT Home Meds Home Medications Medication Instructions Recorded Confirmed Iud 1 device INTRAUTERINE CONTINOUS 01/02/22 01/02/22 buspirone 10 mg tablet 10 mg PO QAM 01/02/22 01/02/22 sertraline 100 mg tablet 150 mg PO QAM 01/02/22 01/02/22 Results & Data (ED) Vital Signs Vital Signs - 24 hr 01/02/22 15:05 01/02/22 16:04 01/02/22 17:05 Temperature 36.6 C Temperature Source Oral Pulse Rate 111 H 84 Pulse Rate [Apical] 100 H Respiratory Rate 16 16 18 Blood Pressure 119/82 116/77 Blood Pressure [Right Arm] 104/91 Blood Pressure Mean 94 90 Blood Pressure Mean [Right Arm] 95 Pulse Oximetry 99 99 97 Oxygen Delivery Method Room Air Sepsis Recent Fever Within 48 Hours No Sepsis New/Unexplained Change in Mental Status No Sepsis Action Taken by Nursing No Action Required 01/02/22 18:02 01/02/22 18:30 01/02/22 19:00 Temperature Temperature Source Pulse Rate 72 82 83 Pulse Rate [Apical] Respiratory Rate 21 17 16 Blood Pressure 106/72 117/86 133/93 Blood Pressure [Right Arm] Blood Pressure Mean 83 96 106 Blood Pressure Mean [Right Arm] Pulse Oximetry 100 100 95 Oxygen Delivery Method Sepsis Recent Fever Within 48 Hours Sepsis New/Unexplained Change in Mental Status Sepsis Action Taken by Nursing 01/02/22 20:27 01/02/22 20:30 Temperature Temperature Source Pulse Rate 85 84 Pulse Rate [Apical] Respiratory Rate 16 16 Blood Pressure 107/66 108/69 Blood Pressure [Right Arm] Blood Pressure Mean 79 82 Blood Pressure Mean [Right Arm] Pulse Oximetry 98 99 Oxygen Delivery Method Sepsis Recent Fever Within 48 Hours Sepsis New/Unexplained Change in Mental Status Sepsis Action Taken by Nursing Laboratory Data Result diagrams: 01/02/22 15:23 01/02/22 15:23 Lab Results 01/02/22 01/02/22 01/02/22 Range/Units 15:23 15:23 15:26 WBC 15.35 H (4.8-10.8) K/uL RBC 4.81 (4.2-5.4) M/uL Hgb 13.8 (12.0-16.0) g/dL Hct 41.7 (37-47) % MCV 86.7 (80-100) fL MCH 28.7 (25-34) pg MCHC 33.1 (32-36) g/dL RDW Std Deviation 54.3 H (36.4-46.3) fL RDW Coeff of Sunny 17.2 H (11.5-14.5) % Plt Count 367 (130-400) K/uL MPV 10.5 H (7.4-10.4) fL Immature Gran % (Auto) 0.3 % Neut % (Auto) 81.8 % Lymph % (Auto) 12.9 % Crisp % (Auto) 4.8 % Eos % (Auto) 0.1 % Baso % (Auto) 0.1 % Neut # (Auto) 12.56 H (1.4-6.5) K/uL Lymph # (Auto) 1.98 (1.2-3.4) K/uL Crisp # (Auto) 0.73 H (0.11-0.59) K/uL Eos # (Auto) 0.02 (0-0.5) K/uL Baso # (Auto) 0.02 (0-0.2) K/uL Immature Gran # (Auto) 0.04 H (0.00-0.02) K/uL Sodium 138 (136-145) mmol/L Potassium 4.2 (3.5-5.1) mmol/L Chloride 105 (98-107) mmol/L Carbon Dioxide 26 (21-32) mmol/L Anion Gap 7 (3-11) BUN 8 (6-23) mg/dl Creatinine 0.73 (0.6-1.2) mg/dl Est Cr Clr Drug Dosing 108.0 ml/min Est GFR ( Amer) 129.9 ml/min Est GFR (Non-Af Amer) 112.1 ml/min BUN/Creatinine Ratio 11.0 (10-20) Glucose 86 (70-99(Fasting)) mg/dl Lactate (0.4-2.0) mmol/L Calcium 9.7 (8.5-10.1) mg/dl Total Bilirubin 0.6 (0.2-1.0) mg/dl AST 17 (13-39) U/L ALT 13 (7-52) U/L Alkaline Phosphatase 65 (34-104) U/L Total Protein 7.6 (6.0-8.3) gm/dl Albumin 4.8 (3.4-5.0) gm/dl Globulin 2.8 (2.5-4.0) gm/dl Albumin/Globulin Ratio 1.7 (0.9-2) Lipase 29 (11-82) U/L Urine Color Dark Yellow Urine Appearance Cloudy A (Clear) Urine pH 5.5 (4.5-7.5) Ur Specific [place] 1.023 (1.000-1.030) Urine Protein Negative (Negative) Urine Glucose (UA) Negative (Negative) Urine Ketones Trace H (Negative) Urine Blood Trace H (Negative) Urine Nitrite Negative (Negative) Urine Bilirubin Negative (Negative) Urine Urobilinogen Negative (Negative) Ur Leukocyte Esterase 2+ H (Negative) Urine WBC (Auto) 10-30 H (0-5) /hpf Urine RBC (Auto) 5-10 H (0-4) /hpf U Hyaline Cast (Auto) 1-5 (0-5) /lpf U Epithel Cells (Auto) >30 H (0-5) /lpf Urine Bacteria (Auto) 1+ H (Negative) Calcium Oxalate Crystal Present A (None Prsent) Urine Mucus Present A (None Prsent) SARS-CoV-2, RNA, NAAT (NEGATIVE) 01/02/22 01/02/22 Range/Units 16:53 18:30 WBC (4.8-10.8) K/uL RBC (4.2-5.4) M/uL Hgb (12.0-16.0) g/dL Hct (37-47) % MCV (80-100) fL MCH (25-34) pg MCHC (32-36) g/dL RDW Std Deviation (36.4-46.3) fL RDW Coeff of Sunny (11.5-14.5) % Plt Count (130-400) K/uL MPV (7.4-10.4) fL Immature Gran % (Auto) % Neut % (Auto) % Lymph % (Auto) % Crisp % (Auto) % Eos % (Auto) % Baso % (Auto) % Neut # (Auto) (1.4-6.5) K/uL Lymph # (Auto) (1.2-3.4) K/uL Crisp # (Auto) (0.11-0.59) K/uL Eos # (Auto) (0-0.5) K/uL Baso # (Auto) (0-0.2) K/uL Immature Gran # (Auto) (0.00-0.02) K/uL Sodium (136-145) mmol/L Potassium (3.5-5.1) mmol/L Chloride (98-107) mmol/L Carbon Dioxide (21-32) mmol/L Anion Gap (3-11) BUN (6-23) mg/dl Creatinine (0.6-1.2) mg/dl Est Cr Clr Drug Dosing ml/min Est GFR ( Amer) ml/min Est GFR (Non-Af Amer) ml/min BUN/Creatinine Ratio (10-20) Glucose (70-99(Fasting)) mg/dl Lactate 1.3 (0.4-2.0) mmol/L Calcium (8.5-10.1) mg/dl Total Bilirubin (0.2-1.0) mg/dl AST (13-39) U/L ALT (7-52) U/L Alkaline Phosphatase (34-104) U/L Total Protein (6.0-8.3) gm/dl Albumin (3.4-5.0) gm/dl Globulin (2.5-4.0) gm/dl Albumin/Globulin Ratio (0.9-2) Lipase (11-82) U/L Urine Color Urine Appearance (Clear) Urine pH (4.5-7.5) Ur Specific [place] (1.000-1.030) Urine Protein (Negative) Urine Glucose (UA) (Negative) Urine Ketones (Negative) Urine Blood (Negative) Urine Nitrite (Negative) Urine Bilirubin (Negative) Urine Urobilinogen (Negative) Ur Leukocyte Esterase (Negative) Urine WBC (Auto) (0-5) /hpf Urine RBC (Auto) (0-4) /hpf U Hyaline Cast (Auto) (0-5) /lpf U Epithel Cells (Auto) (0-5) /lpf Urine Bacteria (Auto) (Negative) Calcium Oxalate Crystal (None Prsent) Urine Mucus (None Prsent) SARS-CoV-2, RNA, NAAT NEGATIVE (NEGATIVE) Administered Medications Discontinued Medications Sodium Chloride (Nss 1000ml) 2,000 mls @ 999 mls/hr IV .Q2H1M ONE Stop: 01/02/22 18:44 Last Infusion: 01/02/22 19:16 Dose: 0 mls/hr Documented by: [id number] Admin: 01/02/22 17:00 Dose: 999 mls/hr Documented by: [id number] Doxycycline Hyclate 100 mg/ (Dextrose) 110 mls @ 50 mls/hr IV NOW STA Stop: 01/02/22 18:55 Last Infusion: 01/02/22 20:09 Dose: 0 mls/hr Documented by: [id number] Admin: 01/02/22 17:57 Dose: 50 mls/hr Documented by: [id number] Ceftriaxone Sodium (Rocephin) 2,000 mg in 70 mls @ 140 mls/hr IV NOW STA Stop: 01/02/22 17:13 Last Infusion: 01/02/22 18:12 Dose: 0 mls/hr Documented by: [id number] Admin: 01/02/22 17:42 Dose: 140 mls/hr Documented by: [id number] Metronidazole (Flagyl) 500 mg in 100 mls @ 100 mls/hr IV NOW ONE Stop: 01/02/22 19:59 Last Infusion: 01/02/22 20:08 Dose: 0 mls/hr Documented by: [id number] Admin: 01/02/22 18:54 Dose: 100 mls/hr Documented by: [id number] Ioversol (Optiray 320 100ml) 94 ml IV ONCE ONE Stop: 01/02/22 17:15 Last Admin: 01/02/22 17:15 Dose: 94 ml Documented by: [id number] Morphine Sulfate (Morphine Sulfate 10 Mg/Ml Carp/Vial) 6 mg IV NOW STA Stop: 01/02/22 18:15 Last Admin: 01/02/22 18:20 Dose: 6 mg Documented by: [id number] Ondansetron HCl (Ondansetron Inj 2 Mg/Ml 2 Ml Vial) 4 mg IV NOW STA Stop: 01/02/22 18:16 Last Admin: 01/02/22 18:20 Dose: 4 mg Documented by: [id number] Imaging Data Radiologist's Impression: Abdomen/Pelvis CT 01/02/22 16:33 CT abd pelvis IV con only CLINICAL HISTORY: abd pain ? abscess . Reported abnormal ultrasound with suspicion of PID. COMPARISON STUDY: 01/13/2016 CT DOSE: 274.89 mGy.cm TECHNIQUE: Standard CT of the Abdomen and Pelvis was performed with IV contrast. A dose lowering technique was utilized adhering to the principles of ALARA. Contrast Volume: Optiray 320, 94 ml. The patient did not receive oral contrast. FINDINGS: Lung base: The lung bases are clear. Abdominal cavity: There is mild to moderate abdominal ascites with fluid surrounding the liver and spleen. Fluid extends into both paracolic gutters with moderate pelvic fluid present. It is more heterogeneous on the right side with no enhancing wall present. The findings are characteristic of an extensive inflammatory process. Liver: There is homogeneous attenuation of the liver parenchyma. There is no evidence for enhancing mass lesion. Spleen: There is homogeneous attenuation of the splenic parenchyma. There is no enhancing mass lesion. Pancreas: There is homogeneous attenuation of the pancreatic parenchyma. There is no evidence for mass lesion or peripancreatic fluid collection. Gall Bladder: The gallbladder is well distended with no evidence for intraluminal calculi, wall thickening or pericholecystic edema. Adrenal glands: The adrenal glands are normal in size and attenuation. There is no evidence for enhancing mass lesion. Kidneys: There is homogeneous attenuation of the renal parenchyma bilaterally. There is no evidence for renal calculus or hydronephrosis. There is no evidence for enhancing mass. Bowel: The bowel loops are normally placed within the abdomen and pelvis without evidence for dilatation or obstruction. There is no evidence for mass lesion. There are no inflammatory changes present. There is no evidence for free air. There is evidence for a normal appendix in the right lower quadrant. Bladder: The bladder is within normal limits with no evidence for focal mass, calculus or diverticulum. : Uterus is enlarged with an IUD in place. There is again extensive fluid present within the pelvis which is greater to the right. No enhancing wall is identified. No definite evidence for active bleeding is seen with no increased attenuation fluid present. Vasculature: There is no evidence for aneurysmal dilatation of the abdominal ao rta. Osseous structures: There is no acute osseous pathology. IMPRESSION: 1. Mild to moderate abdominal ascites and moderate pelvic ascites with abnormal fluid seen within the pelvis particularly to the right side. The findings are characteristic of an inflammatory process. No definite enhancing abscess is identified. 2. The uterus is enlarged with an IUD in place. Correlation with ultrasound is still recommended. These results were discussed directly with the emergency Department. ACT 112: Negative or not required by law. Electronically signed by: Maxwell Donahue M.D. 01/02/2022 5:50 PM Discharge Plan Visit Data Chief Complaint: Referred by Doctor Stated Complaint: ABCESS, REFERRED BY ED Provider: Alex Rivera Discharge Problem: Acute pelvic inflammatory disease (PID), Abdominal pain, Leukocytosis Patient Disposition: Admitted As Inpatient Discharge Instructions Interventions: ED Discharge Assessment Last Done: 01/02/22 21:34 Discharge Problem: Abdominal pain Qualifiers: Abdominal location: unspecified location Qualified Code(s): R10.9 - Unspecified abdominal pain Leukocytosis Qualifiers: Leukocytosis type: unspecified Qualified Code(s): D72.829 - Elevated white blood cell count, unspecified
[2022-01-02] MEDS ORDERED: OPTIRAY 320 100ml IV ONE (17:14)
--- NOTE | 2022-01-02 17:53 | CT Scan Report ---
CT abd pelvis IV con only CLINICAL HISTORY: abd pain ? abscess . Reported abnormal ultrasound with suspicion of PID. COMPARISON STUDY: 01/13/2016 CT DOSE: 274.89 mGy.cm TECHNIQUE: Standard CT of the Abdomen and Pelvis was performed with IV contrast. A dose lowering mamta hnique was utilized adhering to the principles of ALARA. Contrast Volume: Optiray 320, 94 ml. The patient did not receive oral contrast. FINDINGS: Lung base: The lung bases are clear. Abdominal cavity: There is mild to moderate abdominal ascites with fluid surrounding the liver and sp allyson. Fluid extends into both paracolic gutters with moderate pelvic fluid present. It is more hetero geneous on the right side with no enhancing wall present. The findings are characteristic of an exten sive inflammatory process. Liver: There is homogeneous attenuation of the liver parenchyma. There is no evidence for enhancing m ass lesion. Spleen: There is homogeneous attenuation of the splenic parenchyma. There is no enhancing mass lesion . Pancreas: There is homogeneous attenuation of the pancreatic parenchyma. There is no evidence for mas s lesion or peripancreatic fluid collection. Gall Bladder: The gallbladder is well distended with no evidence for intraluminal calculi, wall thick ening or pericholecystic edema. Adrenal glands: The adrenal glands are normal in size and attenuation. There is no evidence for enhan cing mass lesion. Kidneys: There is homogeneous attenuation of the renal parenchyma bilaterally. There is no evidence f or renal calculus or hydronephrosis. There is no evidence for enhancing mass. Bowel: The bowel loops are normally placed within the abdomen and pelvis without evidence for dilatat ion or obstruction. There is no evidence for mass lesion. There are no inflammatory changes present. There is no evidence for free air. There is evidence for a normal appendix in the right lower quadran t. Bladder: The bladder is within normal limits with no evidence for focal mass, calculus or diverticulu m. : Uterus is enlarged with an IUD in place. There is again extensive fluid present within the pelvis which is greater to the right. No enhancing wall is identified. No definite evidence for active blee ding is seen with no increased attenuation fluid present. Vasculature: There is no evidence for aneurysmal dilatation of the abdominal aorta. Osseous structures: There is no acute osseous pathology. IMPRESSION: 1. Mild to moderate abdominal ascites and moderate pelvic ascites with abnormal fluid seen within the pelvis particularly to the right side. The findings are characteristic of an inflammatory process. N o definite enhancing abscess is identified. 2. The uterus is enlarged with an IUD in place. Correlation with ultrasound is still recommended. These results were discussed directly with the emergency Department. ACT 112: Negative or not required by law. Electronically signed by: Maxwell Donahue M.D. 01/02/2022 5:50 PM
[2022-01-02] MEDS ORDERED: MoRPHine SULFATE 10 MG/ML CARP/VIAL IV STA (18:14)
[2022-01-02] MEDS ORDERED: ONDANSETRON INJ 2 MG/ML 2 ML VIAL IV STA (18:15)
[2022-01-02] MEDS ORDERED: metroNIDAZOLE 500 MG/100 ML BAG IV ONE (19:00)
--- NOTE | 2022-01-02 21:05 | History and Physical Report ---
DATE OF ADMISSION: 01/02/2022 CHIEF COMPLAINT: Pelvic pain, spotting. HISTORY OF PRESENT ILLNESS: The patient is a 26-year-old, 2, para 2 good general health, had a Mirena IUD placed in about 3 months ago. She has had some irregular bleeding since. She was seen in the ER about a week ago, she was diagnosed with a chlamydial infection. Both she and her partner were treated. She came back with pelvic pain and discomfort. Ultrasound showed peritoneal fluid and inflammation of the tubes. In the emergency room, I talked to the patient. We removed the Mirena IU D. A pelvic exam at that time revealed diffuse tenderness on motion of the cervix consistent with he r studies. Presently being admitted for IV antibiotics. ALLERGIES: SHE IS QUESTIONABLY ALLERGIC TO PENICILLIN. SHE WAS TOLD THAT SHE HAD AN ALLERGY WHEN SHE WAS A CHILD. SURGICAL HISTORY: No history of previous surgery. MEDICAL HISTORY: No history of rheumatic fever, heart disease, heart murmur, diabetes, tuberculosis. SOCIAL HISTORY: No smoking, no alcohol intake. Works at home. FAMILY HISTORY: Two children in good health. Mom 70, in good health. Father is about in his 60s, h ealth is unknown. Two half brothers in good health. REVIEW OF SYSTEMS: HEAD: No symptoms of frequent or severe headaches. EYES: No symptoms of blurred vision, double vision. EARS: No symptoms of frequent ear infection, difficulty hearing. PHYSICAL EXAMINATION: GENERAL: Well-developed, well-nourished 26-year-old white female, alert, oriented x3, and cooperativ e, in a moderate amount of distress. EYES: Conjunctivae are pink. Sclerae white, no evidence of jaundice. EARS: Had normal light reflex bilaterally. NOSE: Had normal mucosa. Septum is midline. HEART: Had regular rhythm. S1 and S2 are normal. LUNGS: Clear to auscultation and percussion. BREASTS: Exam was normal. ABDOMEN: Revealed good bowel sounds. Moderate amount of tenderness, no rebound. PELVIC: Reveals string coming through the cervical os. IUD was removed at this time. Bimanual exam revealed pain on motion of the cervix in either direction. MUSCULOSKELETAL: Revealed no calf tenderness. IMPRESSION OF THIS CASE: Pelvic infection, previously treated for chlamydial infection. Job ID: [id number]
[2022-01-02] MEDS ORDERED: ACETAMINOPHEN W/CODEINE #3 1 TAB PO PRN (21:17)
[2022-01-02] MEDS: LACTATED RINGER'S 1,000 ML IV SCH (22:27)
[2022-01-02] MEDS: MoRPHine SULFATE 4 MG/ML 1 ML CARP\\VIAL IV PRN (23:23)
[2022-01-03] MEDS: metroNIDAZOLE 500 MG/100 ML BAG IV SCH ×2 (03:28→12:31)
[2022-01-03] MEDS: ONDANSETRON INJ 2 MG/ML 2 ML VIAL IV PRN ×3 (04:22→16:49)
[2022-01-03] MEDS: LACTATED RINGER'S 1,000 ML IV SCH ×2 (07:15→16:39)
[2022-01-03] MEDS: cefTRIAXone SODIUM 2,000 MG in DEXTROSE 5% 50 ML IV SCH (07:57)
[2022-01-03] MEDS ORDERED: DOXYCYCLINE HYCLATE 100 MG CAP PO SCH (09:00)
[2022-01-03] MEDS: DOXYCYCLINE HYCLATE 100 MG CAP PO SCH ×2 (09:14→20:50)
--- NOTE | 2022-01-03 09:47 | Obstetrical Progress Note ---
Date of Service January 03, 2022 Assessment & Plan Admission and Anticipated Discharge Date Admission Date: January 02, 2022 Subjective abdomen tender bowel sounds are hypoactive no calf tenderness nausea persists pain is starting to decrease will order repeat wbc with differential Results & Data ([facility]) Vital Signs (Past 12 Hours) Vital Signs Temp Pulse Resp BP Pulse Ox 01/03/22 07:25 36.6 C 70 16 104/66 99
[2022-01-03] MEDS: MoRPHine SULFATE 4 MG/ML 1 ML CARP\\VIAL IV PRN (10:04)
[2022-01-03 10:36] LABS: Basophils # (auto) 0.02 K/uL (0-0.2); Basophils % (auto) 0.2 %; Eosinophils # (auto) 0.03 K/uL (0-0.5); Eosinophils % (auto) 0.4 %; Immature Granulocytes # (auto) 0.02 K/uL (0.00-0.02); Immature Granulocytes % (auto) 0.2 %; Lymphocytes # (auto) 1.92 K/uL (1.2-3.4); Monocytes # (auto) 0.64 K/uL (0.11-0.59); Monocytes % (auto) 7.7 %; Neutrophils # (auto) 5.72 K/uL (1.4-6.5); Neutrophils % (auto) 68.5 %; White Blood Count 8.35 K/uL (4.8-10.8)
[2022-01-03] MEDS ORDERED: cefTRIAXone SODIUM 2,000 MG/70 ML BAG IV SCH (14:00)
[2022-01-03] MEDS: metroNIDAZOLE 500 MG TAB PO SCH (20:50)
[2022-01-04] MEDS: LACTATED RINGER'S 1,000 ML IV SCH ×2 (00:52→07:59)
[2022-01-04] MEDS: metroNIDAZOLE 500 MG TAB PO SCH (08:00)
[2022-01-04] MEDS: DOXYCYCLINE HYCLATE 100 MG CAP PO SCH (08:00)
[2022-01-04] MEDS: cefTRIAXone SODIUM 2,000 MG in DEXTROSE 5% 50 ML IV SCH (08:35)
--- NOTE | 2022-01-04 09:05 | Obstetrical Progress Note ---
Date of Service January 04, 2022 Assessment & Plan Admission and Anticipated Discharge Date Admission Date: January 02, 2022 Subjective abdomen non tender good bowel sounds no calf tenderness ambulating well no shoulder pain small amount of vaginal bleeding Results & Data ([facility]) Vital Signs (Past 12 Hours) Vital Signs Temp Pulse Resp BP Pulse Ox 01/04/22 07:58 36.7 C 75 16 98/57 L 97 01/03/22 21:26 37.1 C 104 H 16 112/72 98
--- NOTE | 2022-01-04 13:05 | Discharge Summary (DS) ---
HOSPITAL COURSE: I was called to see Mrs. Holland from the ER. She had an acute pelvic infection with inflammation of tubes and ovaries, increased abdominal fluid, shoulder pain and an elevated white co unt. She had a Mirena IUD in place. A week prior to being admitted, she was seen in the ER. She sarah d had a new sexual contact. She had had a positive PID for chlamydia and both her and her we re given a one-time treatment. Treatment apparently failed. She came in a week later with a symptom atic inflammation of the tubes and ovaries, elevated white count, diffuse abdominal pain associated w ith shoulder pain. I saw her and evaluated her in the emergency room. At that time, we discussed re moval of the Mirena, which we proceeded to remove. She had diffuse pain on motion of the cervix in e ither direction and an elevated white count of about 15,000. She was admitted, placed on Rocephin, V ibramycin and Flagyl. Initially the Flagyl was given IV, after three doses it was switched to p.o. At the time she was being discharged, she was receiving Rocephin 2 grams at 9:00 a.m. in the morning, Vibramycin 100 mg twice a day, and Flagyl 500 b.i.d. The day of discharge, her symptoms had resolve d. Her shoulder pain was gone. Her bowel sounds were normal. Her abdomen was nontender. Her white cell count had fallen into the normal range of about 8000. She is ambulating well, eating well, fel t she was ready for discharge. She did have some vaginal bleeding, which we attributed to removal of Mirena IUD. She was discharged with a prescription of Vibramycin 100 mg 20 tablets, she is to take 1 tablet twice a day for 10 days, and Ortho-Cyclen for control. She is also to return to the [facility] in about 2 weeks for followup. Job ID: [id number]
== END 2022-01-04 11:22 | disposition home or self-care (01) | DRG 690 ==
LOC: ED 14:57 → 3E 20:54
DX: Z88.0 Allergy status to penicillin; Z98.82 Breast implant status; F41.9 Anxiety disorder, unspecified; A56.11 Chlamydial female pelvic inflammatory disease; E11.9 Type 2 diabetes mellitus without complications